=== PATIENT | male | born 1980 | race Caucasian/White ===

== ENCOUNTER 2017-11-30 08:59 | Emergency (ER) | payer SELFPAY, BC ==
[2017-11-30] MEDS: IBUPROFEN 800 MG TAB PO (10:02)
== END 2017-11-30 11:44 | disposition home or self-care (01) ==
LOC: FTE 08:59
DX: J06.9 Acute upper respiratory infection, unspecified (principal); H92.02 Otalgia, left ear; F17.210 Nicotine dependence, cigarettes, uncomplicated; E66.9 Obesity, unspecified
CPT/HCPCS: 93005; 99284-25

== ENCOUNTER 2018-01-16 05:26 | Inpatient (IN) | payer SELFPAY ==
[2018-01-16 05:42] LABS: AADO2 Arterial 216.6 mmHg (7.0-24.0); Allen Test ACCEPTAB; Arterial Base Excess 2.8 mmol/L (-3.0-3); Arterial Blood Gas Oxygen Sat 91.9 mmHG (95.0-98.0); Arterial Fraction of Oxyhgb 90.9 % (93.0-99.0); Arterial HCO3 26.9 mmol/L (22.0-26.0); Arterial MetHb 0.1 % (0.0-1.5); Arterial Total Hemglobin 14.9 g/dl (12.0-18.0); Arterial pCO2 39.7 mmhg (35-45); MODE NASAL CANNULA; Site Right Radial
[2018-01-16] MEDS: ASPIRIN 81 MG TAB PO (06:12)
[2018-01-16 06:24] LABS: ADD MAN DIFF? NO
[2018-01-16] MEDS: VANCOMYCIN 1 GM (PMX) 250 ML IVPB (06:30)
[2018-01-16 06:32] LABS: BASOPHIL # 0.1 10^3/ul (0.0-0.1); BASOPHILS % 0.6 % (0.0-2.0); EOSINOPHILS # 0.4 10^3/ul (0.0-0.5); EOSINOPHILS % 3.2 % (0.0-7.0); HEMATOCRIT 42.3 % (42.0-52.0); LYMPHOCYTES # 2.3 10^3/ul (0.8-2.9); LYMPHOCYTES % 19.3 % (15.0-51.0); MEAN CORPUSCULAR HGB CONC 33.1 g/dl (32.0-37.0); MEAN CORPUSCULAR VOLUME 84.6 fl (82.0-101.0); MEAN PLATELET VOLUME 10.5 fl (7.4-10.4); MONOCYTE # 0.9 10^3/ul (0.3-0.9); MONOCYTES % 7.8 % (0.0-11.0); NEUTROPHIL # 8.2 10^3/ul (1.6-7.5); NEUTROPHILS % 68.6 % (39.0-77.0); PLATELET COUNT 229 10^3/UL (140-415); RED CELL DISTRIBUTION WIDTH 14.2 % (11.5-14.5)
[2018-01-16] MEDS: CEFEPIME 2GM/50 ML (PMX) 50 ML IVPB (07:00)
[2018-01-16] MEDS: SODIUM CHLORIDE 0.9% 1L BAG IV* (07:00)
[2018-01-16] MEDS: FAMOTIDINE 20 MG INJ IV (07:01)
[2018-01-16] MEDS: METHYLPREDNISOLONE 125 MG INJ IV ×2 (07:01→14:00)
[2018-01-16] MEDS: ALBUTEROL 0.5% (NEB) 2.5 MG/0.5 ML AMP INH (07:20)
[2018-01-16] MEDS: IPRATROPIUM (NEB) 0.5 MG/2.5 ML AMP INH (07:20)
[2018-01-16 07:22] LABS: ANION GAP 15 (8-16); BLOOD UREA NITROGEN 11 mg/dl (7-20); CALCIUM 9.1 mg/dl (8.4-10.2); CARBON DIOXIDE 30 mmol/L (21-31); CHLORIDE 101 mmol/L (97-110); CREATININE 0.93 mg/dl (0.61-1.24); GLUCOSE 133 mg/dl (70-220); POTASSIUM 4.1 mmol/L (3.5-5.1); SODIUM 142 mmol/L (135-144)
[2018-01-16 07:34] LABS: B-TYPE NATRIURETIC PEPTIDE 693 PG/ML (0-125); TROPONIN-I 0.046 ng/ml (0.00-0.12)
[2018-01-16] MEDS: IOHEXOL 100 ML (09:20)
[2018-01-16] MEDS: SOD CHLORIDE 0.9% 100 ML (09:20)
[2018-01-16 09:31] LABS: LACTIC ACID 1.5 mmol/L (0.5-2.0)
[2018-01-16] MEDS ORDERED: ACETAMINOPHEN 325 MG TAB PO (10:30)
[2018-01-16] MEDS ORDERED: ONDANSETRON 4 MG INJ IV ×2 (10:30→11:30)
[2018-01-16] MEDS: SOD CHLORIDE 0.45% 1,000 ML IV (11:07)
[2018-01-16] MEDS ORDERED: hydrALAzine 20 MG INJ IV (11:30)
[2018-01-16] MEDS ORDERED: NACL 0.9% 3 ML SYG IV (11:30)
[2018-01-16] MEDS ORDERED: MAGNESIUM HYDROXIDE 30ML CUP PO (11:30)
[2018-01-16] MEDS ORDERED: morphine 2 MG INJ IV (11:30)
[2018-01-16] MEDS ORDERED: DOCUSATE SODIUM 100 MG CAP PO (11:30)
[2018-01-16] MEDS ORDERED: NA PHOSPHATE/BIPHOS 133 ML ENEMA PR (11:30)
[2018-01-16] MEDS ORDERED: LEVOFLOXACIN 750MG/D5W (PMX) 150 ML IVPB (12:00)
[2018-01-16] MEDS ORDERED: VANCOMYCIN IV PER PHARMACY XX (12:00)
[2018-01-16 13:32] LABS: FREE T4 (FREE THYROXINE) 0.99 ng/dl (0.79-2.35)
[2018-01-16] MEDS: NICOTINE (21 MG/24 HR) PATCH TRANSDERM (14:02)
[2018-01-16] MEDS: VANCOMYCIN 1.25 GM in SOD CHLORIDE 0.9% 250 ML IVPB (14:07)
[2018-01-17] MEDS: LORAZEPAM 2 MG INJ IV (01:35)
[2018-01-17] MEDS: CEFEPIME 2GM/50 ML (PMX) 50 ML IVPB ×3 (01:36→22:36)
[2018-01-17] MEDS: HYDROCODONE/APAP (5/325) TAB PO (01:36)
[2018-01-17] MEDS: METHYLPREDNISOLONE 125 MG INJ IV ×4 (03:26→20:18)
[2018-01-17] MEDS: SOD CHLORIDE 0.45% 1,000 ML IV ×2 (03:27→13:27)
[2018-01-17] MEDS: VANCOMYCIN 1.25 GM in SOD CHLORIDE 0.9% 250 ML IVPB ×4 (03:27→23:19)
[2018-01-17] MEDS: HEPARIN 5,000 UNIT/0.5 ML VIAL SC ×3 (03:28→20:19)
[2018-01-17 06:42] LABS: ADD MAN DIFF? NO
[2018-01-17 06:52] LABS: BASOPHILS % 0.1 % (0.0-2.0); HEMATOCRIT 44.6 % (42.0-52.0); HEMOGLOBIN 14.3 g/dl (14.0-18.0); LYMPHOCYTES # 1.2 10^3/ul (0.8-2.9); LYMPHOCYTES % 7.3 % (15.0-51.0); MEAN CORPUSCULAR HEMOGLOBIN 27.5 pg (29.0-33.0); MEAN CORPUSCULAR HGB CONC 32.1 g/dl (32.0-37.0); MEAN CORPUSCULAR VOLUME 85.8 fl (82.0-101.0); MEAN PLATELET VOLUME 10.7 fl (7.4-10.4); MONOCYTE # 0.7 10^3/ul (0.3-0.9); MONOCYTES % 4.1 % (0.0-11.0); NEUTROPHIL # 14.9 10^3/ul (1.6-7.5); NEUTROPHILS % 88.1 % (39.0-77.0); PLATELET COUNT 243 10^3/UL (140-415); RED CELL DISTRIBUTION WIDTH 14.3 % (11.5-14.5)
[2018-01-17 06:52] LABS: WHITE BLOOD COUNT 16.9 10^3/ul (4.8-10.8)
[2018-01-17 07:19] LABS: CHOLESTEROL 189 mg/dl (100-200)
[2018-01-17 07:19] LABS: CHOL/HDL RATIO 4.3 RATIO; HDL CHOLESTEROL 43 mg/dl (28-63); LDL CHOLESTEROL,CALCULATED 119 mg/dl; TRIGLYCERIDES 133 mg/dl (0-149)
[2018-01-17 07:20] LABS: ANION GAP 13 (8-16); BLOOD UREA NITROGEN 17 mg/dl (7-20); CALCIUM 9.3 mg/dl (8.4-10.2); CARBON DIOXIDE 27 mmol/L (21-31); CHLORIDE 107 mmol/L (97-110); GLUCOSE 176 mg/dl (70-220); MAGNESIUM 2.2 mg/dl (1.7-2.5); PHOSPHORUS 2.3 mg/dl (2.5-4.9); POTASSIUM 5.2 mmol/L (3.5-5.1); SODIUM 142 mmol/L (135-144)
[2018-01-17 09:06] LABS: HEMOGLOBIN A1C 5.7 % (0-5.9)
[2018-01-17] MEDS: GUAIFENESIN/DM 5ML CUP PO (12:40)
[2018-01-17] MEDS: ACETAMINOPHEN 325 MG TAB PO (13:35)
[2018-01-17] MEDS: NICOTINE (21 MG/24 HR) PATCH TRANSDERM (13:35)
[2018-01-17 15:36] LABS: ANION GAP 18 (8-16); BLOOD UREA NITROGEN 18 mg/dl (7-20); CALCIUM 8.9 mg/dl (8.4-10.2); CARBON DIOXIDE 25 mmol/L (21-31); CHLORIDE 104 mmol/L (97-110); CREATININE 0.73 mg/dl (0.61-1.24); GLUCOSE 321 mg/dl (70-220); POTASSIUM 4.7 mmol/L (3.5-5.1); SODIUM 142 mmol/L (135-144)
[2018-01-17] MEDS: FUROSEMIDE 20 MG INJ IV (17:47)
[2018-01-17] MEDS: SODIUM PHOSPHATE 15 MMOL in SOD CHLORIDE 0.9% 250 ML IVPB (17:48)
[2018-01-17] MEDS: NITROGLYCERIN (SL) 0.4 MG TAB SL (19:55)
[2018-01-17] MEDS: ALBUTEROL/IPRATROPIUM (NEB) 3 ML AMP HHN (20:03)
[2018-01-17] MEDS: ZOLPIDEM 5 MG TAB PO (20:18)
[2018-01-17] MEDS: AZITHROMYCIN 250 MG in SOD CHLORIDE 0.9% 250 ML IVPB (21:14)
[2018-01-18] MEDS: SOD CHLORIDE 0.45% 1,000 ML IV (03:01)
[2018-01-18 03:08] LABS: ADD MAN DIFF? NO
[2018-01-18 03:09] LABS: BASOPHILS % 0.1 % (0.0-2.0); HEMATOCRIT 38.2 % (42.0-52.0); HEMOGLOBIN 12.1 g/dl (14.0-18.0); LYMPHOCYTES # 1.3 10^3/ul (0.8-2.9); MEAN CORPUSCULAR HEMOGLOBIN 27.4 pg (29.0-33.0); MEAN CORPUSCULAR HGB CONC 31.7 g/dl (32.0-37.0); MEAN CORPUSCULAR VOLUME 86.4 fl (82.0-101.0); MEAN PLATELET VOLUME 10.6 fl (7.4-10.4); MONOCYTE # 0.8 10^3/ul (0.3-0.9); NEUTROPHIL # 16.7 10^3/ul (1.6-7.5); PLATELET COUNT 246 10^3/UL (140-415); RED BLOOD COUNT 4.42 10^6/ul (4.70-6.10)
[2018-01-18 03:09] LABS: WHITE BLOOD COUNT 19.2 10^3/ul (4.8-10.8)
[2018-01-18 03:41] LABS: PHOSPHORUS 3.3 mg/dl (2.5-4.9)
[2018-01-18 03:41] LABS: ANION GAP 14 (8-16); BLOOD UREA NITROGEN 17 mg/dl (7-20); CALCIUM 8.6 mg/dl (8.4-10.2); CARBON DIOXIDE 29 mmol/L (21-31); CHLORIDE 102 mmol/L (97-110); CREATININE 0.82 mg/dl (0.61-1.24); GLUCOSE 352 mg/dl (70-220); POTASSIUM 4.4 mmol/L (3.5-5.1); SODIUM 141 mmol/L (135-144)
[2018-01-18 03:52] LABS: VANCOMYCIN,TROUGH 20.3 ug/ml (10.0-20.0)
[2018-01-18] MEDS: VANCOMYCIN 1.25 GM in SOD CHLORIDE 0.9% 250 ML IVPB ×3 (04:00→15:49)
[2018-01-18] MEDS: CEFEPIME 2GM/50 ML (PMX) 50 ML IVPB (07:54)
[2018-01-18] MEDS: METHYLPREDNISOLONE 125 MG INJ IV (07:54)
[2018-01-18] MEDS: NICOTINE (21 MG/24 HR) PATCH TRANSDERM (07:54)
[2018-01-18] MEDS: HEPARIN 5,000 UNIT/0.5 ML VIAL SC ×2 (07:56→21:14)
[2018-01-18] MEDS: FUROSEMIDE 40 MG TAB PO (08:07)
[2018-01-18] MEDS: INFLUENZA VIRUS VACCINE 0.5 ML (DISPENSING) IM* (11:27)
[2018-01-18 12:41] LABS: HIV 1&2 ANTIBODY NEGATIVE (NEGATIVE)
[2018-01-18] MEDS: LORAZEPAM 2 MG INJ IV (13:33)
[2018-01-18] MEDS: AZITHROMYCIN 250 MG in SOD CHLORIDE 0.9% 250 ML IVPB ×2 (16:30→19:10)
[2018-01-18] MEDS ORDERED: GLUCAGON 1 MG INJ IM (18:30)
[2018-01-18] MEDS ORDERED: GLUCOSE GEL 15 GRAM TUBE BUCCAL (18:30)
[2018-01-18] MEDS ORDERED: DEXTROSE 50% 50 ML SYRINGE IV ×2 (18:30)
[2018-01-18] MEDS ORDERED: GLUCOSE GEL 15 GRAM TUBE PO ×2 (18:30)
[2018-01-18] MEDS: INSULIN GLARGINE [LANtus] 3 ML PEN SC (20:00)
[2018-01-18] MEDS: ALBUTEROL/IPRATROPIUM (NEB) 3 ML AMP HHN (20:47)
[2018-01-18] MEDS: INSULIN ASPART [NOVOLOG] 3 ML PEN SC (21:00)
[2018-01-18] MEDS ORDERED: METHYLPREDNISOLONE 40 MG INJ IV (21:00)
[2018-01-18] MEDS: LORAZEPAM 1 MG TAB PO (21:02)
[2018-01-18] MEDS: ZOLPIDEM 5 MG TAB PO (21:05)
[2018-01-19] MEDS: ACCU-CHEK XX (02:00)
[2018-01-19 06:04] LABS: ADD MAN DIFF? NO
[2018-01-19 06:12] LABS: BASOPHILS % 0.2 % (0.0-2.0); EOSINOPHILS % 0.1 % (0.0-7.0); HEMATOCRIT 41.2 % (42.0-52.0); HEMOGLOBIN 13.2 g/dl (14.0-18.0); LYMPHOCYTES # 4.5 10^3/ul (0.8-2.9); LYMPHOCYTES % 25.9 % (15.0-51.0); MEAN CORPUSCULAR HEMOGLOBIN 27.3 pg (29.0-33.0); MEAN CORPUSCULAR VOLUME 85.3 fl (82.0-101.0); MEAN PLATELET VOLUME 10.3 fl (7.4-10.4); MONOCYTE # 1.1 10^3/ul (0.3-0.9); MONOCYTES % 6.5 % (0.0-11.0); NEUTROPHIL # 11.4 10^3/ul (1.6-7.5); NEUTROPHILS % 66.3 % (39.0-77.0); PLATELET COUNT 273 10^3/UL (140-415); POSITIVE DIFF @See below; RED BLOOD COUNT 4.83 10^6/ul (4.70-6.10); RED CELL DISTRIBUTION WIDTH 13.8 % (11.5-14.5)
[2018-01-19 06:12] LABS: WHITE BLOOD COUNT 17.2 10^3/ul (4.8-10.8)
[2018-01-19 06:40] LABS: ANION GAP 14 (8-16); BLOOD UREA NITROGEN 17 mg/dl (7-20); CALCIUM 8.5 mg/dl (8.4-10.2); CARBON DIOXIDE 30 mmol/L (21-31); CHLORIDE 103 mmol/L (97-110); CREATININE 0.78 mg/dl (0.61-1.24); GLUCOSE 170 mg/dl (70-220); POTASSIUM 3.7 mmol/L (3.5-5.1); SODIUM 143 mmol/L (135-144)
[2018-01-19] MEDS: LEVOFLOXACIN 750 MG TABLET PO (06:40)
[2018-01-19] MEDS: INSULIN ASPART [NOVOLOG] 3 ML PEN SC ×4 (08:15→18:29)
[2018-01-19] MEDS: ALBUTEROL/IPRATROPIUM (NEB) 3 ML AMP HHN ×3 (08:47→20:25)
[2018-01-19] MEDS: FUROSEMIDE 40 MG TAB PO (09:00)
[2018-01-19] MEDS: NICOTINE (21 MG/24 HR) PATCH TRANSDERM (10:06)
[2018-01-19] MEDS: predniSONE 50 MG TAB PO (10:06)
[2018-01-19] MEDS: HEPARIN 5,000 UNIT/0.5 ML VIAL SC ×2 (10:08→20:32)
[2018-01-19] MEDS: INSULIN GLARGINE [LANtus] 3 ML PEN SC (20:32)
[2018-01-19] MEDS: ZOLPIDEM 5 MG TAB PO (20:33)
[2018-01-20] MEDS: ACETAMINOPHEN 325 MG TAB PO (01:07)
[2018-01-20] MEDS: ALBUTEROL/IPRATROPIUM (NEB) 3 ML AMP HHN ×2 (01:44→07:39)
[2018-01-20] MEDS: ACCU-CHEK XX (02:00)
[2018-01-20] MEDS: LEVOFLOXACIN 750 MG TABLET PO (06:22)
[2018-01-20] MEDS: HYDROCODONE/APAP (5/325) TAB PO (06:23)
[2018-01-20] MEDS: INSULIN ASPART [NOVOLOG] 3 ML PEN SC (08:15)
[2018-01-20] MEDS: HEPARIN 5,000 UNIT/0.5 ML VIAL SC (09:00)
[2018-01-20] MEDS: NICOTINE (21 MG/24 HR) PATCH TRANSDERM (09:56)
[2018-01-20] MEDS: predniSONE 50 MG TAB PO (09:56)
[2018-01-20] MEDS: FUROSEMIDE 40 MG TAB PO (10:01)
== END 2018-01-20 12:05 | disposition left against medical advice (07) | DRG 291 ==
LOC: MS4 10:33 → E/R 05:26 → MS2 01-18 14:02
DX: I50.23 Acute on chronic systolic (congestive) heart failure (principal); J15.9 Unspecified bacterial pneumonia; Z68.41 Body mass index [BMI] 40.0-44.9, adult; E66.9 Obesity, unspecified; I25.2 Old myocardial infarction; F17.210 Nicotine dependence, cigarettes, uncomplicated; Z95.5 Presence of coronary angioplasty implant and graft; Z91.19 Patient's noncompliance with other medical treatment and regimen; R73.9 Hyperglycemia, unspecified; T38.0X5A Adverse effect of glucocorticoids and synthetic analogues, initial encounter
CPT/HCPCS: 36415; 36600; 71045; 71275; 80048; 80061; 80202; 82803; 82962; 83036; 83605; 83735; 83880; 84100; 84439; 84443; 84484; 85025; 86703; 87040; 87400; 90686; 93005; 93306; 93970; 94640; 94644; 94660; 94664; 96365; 96375; 99291-25; J1940

== ENCOUNTER 2018-01-20 15:01 | Emergency (ER) | payer SELFPAY | END 2018-01-20 15:29 | disposition left against medical advice (07) | LOC: E/R 15:29 | DX: Z53.21 Procedure and treatment not carried out due to patient leaving prior to being seen by health care provider (principal) ==

== ENCOUNTER 2018-01-20 15:57 | Emergency (ER) | payer SELFPAY | END 2018-01-20 18:56 | disposition left against medical advice (07) | LOC: FTE 15:57 | DX: Z53.21 Procedure and treatment not carried out due to patient leaving prior to being seen by health care provider (principal) ==